=== PATIENT | male | born 1950 | race African-American/Black ===

== ENCOUNTER 2020-09-25 10:15 | Observation (INO) ==
[2020-09-25] MEDS ORDERED: Naloxone 0.4 MG/ML INJ IVP PRN (12:04)
[2020-09-25] MEDS ORDERED: Ondansetron 4 MG/2 ML VIAL IVP PRN (12:04)
[2020-09-25] MEDS ORDERED: Lacri-Lube 3.5 GM TUBE BOTH EYES PRN (14:17)
[2020-09-25] MEDS ORDERED: Fluticasone Propionate Nasal 50 MCG/SPRAY BOTTLE NS PRN (14:25)
[2020-09-25] MEDS ORDERED: NON-FORMULARY MEDICATION 1 EACH EACH (Brinzolamide/Brimonidine Tart [Simbrinza 1%-0.2% Eye BOTH EYES SCH (15:00)
[2020-09-25] MEDS: ARIPiprazole 10 MG TABLET PO SCH (15:39)
[2020-09-25] MEDS: *HR* Metformin 500 MG TABLET PO SCH (15:39)
[2020-09-25] MEDS: Brinzolamide 1% 10 ML BOTTLE BOTH EYES SCH ×2 (15:44→19:51)
[2020-09-25] MEDS: *HR* Heparin 5,000 UNIT/ML VIAL SQ SCH (17:30)
[2020-09-25] MEDS: carBAMazepine 200 MG TABLET PO SCH (19:45)
[2020-09-25] MEDS: Haloperidol Lactate 5 MG/ML VIAL IVP PRN (19:45)
[2020-09-25] MEDS: Budesonide/Formoterol 160/4.5 1 PUFF INH IH SCH (20:29)
[2020-09-26] MEDS: Haloperidol Lactate 5 MG/ML VIAL IVP PRN (01:42)
[2020-09-26 02:32] LABS: Basophils # 0.1 K/mcL (0.0-0.2); Basophils % 1.1 %; Eosinophils # 0.1 K/mcL (0.0-0.6); Eosinophils % 2.2 %; Hematocrit 38.7 % (37.5-50.1); Hemoglobin 12.8 g/dL (12.9-16.9); Immature Granulocytes % 0.2 % (0-4); Lymphocytes # 1.9 K/mcL (0.6-4.6); Lymphocytes % 41.4 %; Mean Corpuscular HGB Conc 33.1 g/dL (31.6-35.5); Mean Corpuscular Hemoglobin 27.8 pg (28.0-33.3); Mean Corpuscular Volume 84.1 fL (83.0-100.0); Mean Platelet Volume 12.7 fL (9.4-12.4); Monocytes # 0.6 K/mcL (0.0-1.3); Monocytes % 11.9 %; Platelet Count 178 K/mcL (140-400); Red Cell Distribution Width 13.8 % (11.5-14.5); Segmented Neutrophils % 43.2 %; White Blood Count 4.6 K/mcL (4.3-11.1)
[2020-09-26 02:50] LABS: BUN/Creatinine Ratio 13 (6-26); Blood Urea Nitrogen 14 mg/dL (8-23); Carbon Dioxide 25 mEq/L (23-29); Chloride 107 mEq/L (98-107); Potassium 3.8 mEq/L (3.5-5.1); Sodium 142 mEq/L (136-145); eGFR For African Americans > 60 (> 60)
[2020-09-26 02:51] LABS: Calcium 8.5 mg/dL (8.6-10.3); Glucose 86 mg/dL (70-105); Osmolality,Calculated 294 (280-300); eGFR For Non-African Americans > 60 (> 60)
[2020-09-26] MEDS: *HR* Heparin 5,000 UNIT/ML VIAL SQ SCH ×2 (05:47→16:16)
[2020-09-26] MEDS ORDERED: Tiotropium 10 INH DOSE IH ONE (07:34)
[2020-09-26] MEDS: Tiotropium 10 INH DOSE IH SCH (07:35)
[2020-09-26] MEDS: Budesonide/Formoterol 160/4.5 1 PUFF INH IH SCH ×2 (07:35→22:41)
[2020-09-26] MEDS: Brinzolamide 1% 10 ML BOTTLE BOTH EYES SCH ×3 (08:49→21:16)
[2020-09-26] MEDS ORDERED: cefTRIAXone 1,000 MG in Water for inj. (sterile) 10 ML IVP SCH (09:00)
[2020-09-26] MEDS: Magnesium Oxide 400 MG TABLET PO SCH (10:25)
[2020-09-26] MEDS: ARIPiprazole 10 MG TABLET PO SCH (10:25)
[2020-09-26] MEDS: *HR* Metformin 500 MG TABLET PO SCH ×2 (10:25→17:40)
[2020-09-26] MEDS: carBAMazepine 200 MG TABLET PO SCH ×2 (10:26→21:17)
[2020-09-26] MEDS: Cholecalciferol (D-3) 1,000 UNIT (25MCG) TABLET PO SCH (10:26)
[2020-09-26] MEDS: Aspirin Enteric Coated 81 MG Tablet PO SCH (10:26)
[2020-09-26] MEDS: Piperacillin/Tazobactam 3.375 GM in 0.9 % Sodium Chloride Mini Bag 100 ML IVPB SCH ×3 (13:10→21:22)
[2020-09-26] MEDS: QUEtiapine Fumarate 25 MG TABLET PO SCH (21:22)
[2020-09-27] MEDS ORDERED: Haloperidol Lactate 5 MG/ML VIAL IM ONE (00:26)
[2020-09-27] MEDS: Piperacillin/Tazobactam 3.375 GM in 0.9 % Sodium Chloride Mini Bag 100 ML IVPB SCH (04:57)
[2020-09-27] MEDS: *HR* Heparin 5,000 UNIT/ML VIAL SQ SCH ×2 (05:10→16:54)
[2020-09-27] MEDS: Tiotropium 10 INH DOSE IH SCH (07:56)
[2020-09-27] MEDS: Budesonide/Formoterol 160/4.5 1 PUFF INH IH SCH ×2 (07:56→19:42)
[2020-09-27] MEDS: ARIPiprazole 10 MG TABLET PO SCH (08:46)
[2020-09-27] MEDS: Magnesium Oxide 400 MG TABLET PO SCH (08:47)
[2020-09-27] MEDS: Aspirin Enteric Coated 81 MG Tablet PO SCH (08:47)
[2020-09-27] MEDS: *HR* Metformin 500 MG TABLET PO SCH ×2 (08:47→17:54)
[2020-09-27] MEDS: carBAMazepine 200 MG TABLET PO SCH ×2 (08:47→20:10)
[2020-09-27] MEDS: Cholecalciferol (D-3) 1,000 UNIT (25MCG) TABLET PO SCH (08:47)
[2020-09-27] MEDS: Brinzolamide 1% 10 ML BOTTLE BOTH EYES SCH ×3 (08:48→20:11)
[2020-09-27] MEDS: cephALEXin 500 MG CAPSULE PO SCH ×3 (12:37→20:11)
[2020-09-27] MEDS: QUEtiapine Fumarate 25 MG TABLET PO SCH (20:11)
[2020-09-28] MEDS: *HR* Heparin 5,000 UNIT/ML VIAL SQ SCH (05:08)
[2020-09-28 07:10] VITALS: BP 149/81
[2020-09-28] MEDS: Magnesium Oxide 400 MG TABLET PO SCH (07:42)
[2020-09-28] MEDS: ARIPiprazole 10 MG TABLET PO SCH (07:42)
[2020-09-28] MEDS: carBAMazepine 200 MG TABLET PO SCH (07:42)
[2020-09-28] MEDS: cephALEXin 500 MG CAPSULE PO SCH (07:42)
[2020-09-28] MEDS: Cholecalciferol (D-3) 1,000 UNIT (25MCG) TABLET PO SCH (07:42)
[2020-09-28] MEDS: Aspirin Enteric Coated 81 MG Tablet PO SCH (07:42)
[2020-09-28] MEDS: *HR* Metformin 500 MG TABLET PO SCH (07:42)
[2020-09-28] MEDS: Brinzolamide 1% 10 ML BOTTLE BOTH EYES SCH (07:46)
[2020-09-28] MEDS: Budesonide/Formoterol 160/4.5 1 PUFF INH IH SCH (07:57)
[2020-09-28] MEDS: Tiotropium 10 INH DOSE IH SCH (07:58)
== END 2020-09-28 12:00 | disposition home or self-care (01) ==
LOC: 3BNU → SUATTDRO 11:50
PROVIDERS: ADMIT Internal Medicine; ATTEND Internal Medicine